=== PATIENT | male | born 1960 | race Caucasian/White ===

== ENCOUNTER → 2018-11-13 | Day surgery (SDC) | payer BC ==
[~2018-11-13] MED LIST: Lactated Ringers 1,000 ML IV SCH; Propofol 200 MG/20 ML SDV IV ONE
--- NOTE | 2018-11-13 14:28 | OR ---
DATE OF OPERATION: 11/13/2018 PREOPERATIVE DIAGNOSIS: SCREENING COLONOSCOPY. POSTOPERATIVE DIAGNOSIS: SCREENING COLONOSCOPY. SURGEON: Ghulam Rudolph MD PROCEDURE: FULL-LENGTH COLONOSCOPY. ANESTHESIA: CUSHION PADDER. COMPLICATIONS: None. SPECIMEN: None. FINDINGS: 1. Full-length colonoscopy. 2. Small sessile polyp, rectosigmoid junction. RECOMMENDATIONS: Followup colonoscopy in 5 years. INDICATIONS: The patient was due for a screening colonoscopy. He elected to proceed. DESCRIPTION OF PROCEDURE: The patient was prepped and draped, placed in the left lateral decubitus position. A lubricated Olympus colonoscope was inserted and easily advanced to the cecum. Direct visualization of the ileocecal valve was accomplished. Bowel prep was fine. Upon withdrawal of the scope, the cecum, ascending and transverse colons were completely benign. Descending colon and sigmoid area showed no signs of any polyps, mass, ulceration, or bleeding sites. No vascular abnormalities or signs of colitis. There were no diverticula. At the rectosigmoid junction, around 30 cm, the patient had a small flat sessile polyp removed in its entirety with 2 cold forceps biopsies. Resolution of bleeding was spontaneous. The rectal vault was benign. Retroflexion of the scope in the rectum showed no perianal lesions. Air was then suctioned, scope removed without complication. DAVEY/COREEN /[id number]
== END ==
LOC: CC.SDS 10:30
PROVIDERS: ATTEND Family Medicine
DX: Z12.11 Encounter for screening for malignant neoplasm of colon (principal); D12.7 Benign neoplasm of rectosigmoid junction; N40.0 Benign prostatic hyperplasia without lower urinary tract symptoms; K21.9 Gastro-esophageal reflux disease without esophagitis; K44.9 Diaphragmatic hernia without obstruction or gangrene; I10 Essential (primary) hypertension; G47.30 Sleep apnea, unspecified; Z79.899 Other long term (current) drug therapy; Z87.891 Personal history of nicotine dependence
CPT/HCPCS: J2704; J7120

== ENCOUNTER 2024-01-28 17:28 | Emergency (ER) | payer MEDICARE, BC ==
[2024-01-28] MEDS: Sodium Bicarbonate 8.4% 50 MEQ/50 ML Syringe IVPUSH ONE (17:31)
[2024-01-28] MEDS: EPINEPHrine 1:10,000 1 MG/10 ML Syringe IVPUSH ONE ×2 (17:33→17:36)
== END 2024-01-28 17:39 | disposition expired ==
LOC: CC.ED 17:28
DX: I46.9 Cardiac arrest, cause unspecified (principal); Z79.899 Other long term (current) drug therapy
CPT/HCPCS: 36415; 36680; 80061; 92950; 99285-25; J0171; J3490